=== PATIENT | female | born 1950 | race Caucasian/White ===

== ENCOUNTER 2024-01-26 08:57 | Emergency (ER) | payer OTHER ==
[2024-01-26 09:55] LABS: Absolute Eosinophils 0.2 K/uL (0-0.5); Absolute Lymphocytes (CBC) 1.6 K/uL (0.7-4.9); Absolute Monocytes 0.6 K/uL (0.1-1.3); Absolute Neutrophil 3.5 K/uL (1.8-8.0); Basophils % 0.8 % (0-1.3); Eosinophils % 2.8 % (0-4.4); Hematocrit 42.9 % (36.0-45.0); Hemoglobin 14.2 g/dL (12.0-15.0); Lymphocytes % 26.2 % (15.3-44.8); MCH 30.6 pg (27.0-35.0); MCHC 33.2 g/dL (32.0-36.0); MCV 92.1 fL (80-100); MPV 8.9 fL (7.6-11.3); Monocytes % 10.6 % (3.3-12.3); Neutrophils % 59.6 % (41.7-73.7); Platelets 262 thou/uL (152-406); RBC Red Blood Cell Count 4.66 M/uL (3.86-4.86); Red Cell Distribution Width 12.9 % (12.1-15.2)
[2024-01-26] MEDS ORDERED: NA CHLORIDE 0.9% 500 ML ONE (11:16)
[2024-01-26 11:58] LABS: Albumin 3.9 g/dL (3.4-5.0); Albumin/Globulin Ratio 1.1 (1.1-1.8); Anion Gap 9.1 mEq/L (5.0-15.0); Bilirubin Total 0.6 mg/dL (0.2-1.0); Globulin 3.5 g/dL (2.3-3.5); Potassium 4.1 mEq/L (3.5-5.1); Protein, Total 7.4 g/dL (6.4-8.2)
--- NOTE | 2024-01-26 12:52 | RAD REPORT ---
EXAM DESCRIPTION: CT - Abdomen Pelvis W Contrast - 01/26/2024 12:27 pm CLINICAL HISTORY: Abd pain;Constipation COMPARISON: No comparisons TECHNIQUE: Thin cut axial CT imaging of the abdomen and pelvis was performed following intravenous a dministration of 100 mL Isovue 300. Multiplanar reformats were generated and reviewed. All CT scans are performed using dose optimization technique as appropriate and may include automated exposure control or mA/KV adjustment according to patient size. FINDINGS: No suspicious findings in the lung bases. The liver, spleen, adrenal glands, and pancreas show no suspicious findings. Gallbladder and biliary tree are also without suspicious finding. Symmetric renal function is seen with no hydronephrosis or suspicious renal mass. No dilated bowel loops or bowel wall thickening. Mild distal colonic diverticulosis. No free air, sana e fluid or inflammatory stranding. No hernia, mass or bulky lymphadenopathy. The urinary bladder is w ithout significant finding. No suspicious bony findings. Sequelae of left lower extremity amputation, with osteopenia along the l eft hemipelvis. IMPRESSION: No acute intra-abdominal process. Incidental findings as above.
[2024-01-26] MEDS ORDERED: MAGNESIUM CITRATE 300 ML BOT ONE (13:39)
[2024-01-26 14:28] VITALS: BP 118/88; TEMP 97.9; O2SAT 98
--- NOTE | 2024-01-26 18:03 | ER ---
Nurse's Notes [facility] Name: Luci Vaca Age: 73 yrs Sex: Female : 1950 Arrival Date: 01/26/2024 Time: 08:57 Bed 5 Private MD: Diagnosis: Constipation, unspecified Presentation: 01/25 09:14 Chief complaint: Patient states: has not had a BM X 2 weeks. Coronavirus screen: At iw this time, the client does not indicate any symptoms associated with coronavirus-19. Ebola Screen: Patient negative for fever greater than or equal to 101.5 degrees Fahrenheit, and additional compatible Ebola Virus Disease symptoms Patient denies exposure to infectious person. Patient denies travel to an Ebola-affected area in the 21 days before illness onset. No symptoms or risks identified at this time. Initial Sepsis Screen: Does the patient meet any 2 criteria? No. Patient's initial sepsis screen is negative. Does the patient have a suspected source of infection?. Risk Assessment: Do you want to hurt yourself or someone else? Patient reports no desire to harm self or others. Onset of symptoms was January 12, 2024. 09:14 Method Of Arrival: Wheelchair iw 09:14 Acuity: VIKTORIYA 3 iw Historical: - Allergies: 09:15 Codeine; not true allergy; iw - PMHx: 09:15 DVT; Hypertension; Myocardial infarction; iw - Immunization history:: Adult Immunizations up to date. - Infectious Disease History:: Denies. - Family history:: not pertinent. - Social history:: Smoking status: Patient denies any tobacco usage or history of. - Hospitalizations: : No recent hospitalization is reported. Screenin:36 [facility] ED Fall Risk Assessment (Adult) History of falling in the last 3 months, hb including since admission No falls in past 3 months (0 pts) Confusion or Disorientation No (0 pts) Intoxicated or Sedated No (0 pts) Impaired Gait Yes (1 pt) Mobility Assist Device Used Yes (1 pt) Altered Elimination No (0 pt) Score/Fall Risk Level 3 or more points = High Risk Oriented to surroundings, Maintained a safe environment, Educated pt \T\ family on fall prevention, incl call for assistance when getting out of bed, Assessed \T\ reinforced patient's understanding of fall precautions, Hourly rounding (assess needs \T\ fall precautionary measures) done. Abuse screen: Denies threats or abuse. Denies injuries from another. Nutritional screening: No deficits noted. Tuberculosis screening: No symptoms or risk factors identified. Assessment: 10:40 General: Appears in no apparent distress. Behavior is calm, cooperative. Pain: Pain hb currently is 2 out of 10 on a pain scale. Neuro: Level of Consciousness is awake, alert, obeys commands, Oriented to person, place, time, situation. Cardiovascular: Patient's skin is warm and dry. Respiratory: Respiratory effort is even, unlabored, Respiratory pattern is regular, symmetrical. GI: Reports bloating, constipation, Pain is 2 out of 10 on a pain scale. : No signs and/or symptoms were reported regarding the genitourinary system. EENT: No signs and/or symptoms were reported regarding the EENT system. Derm: Skin is pink, warm \T\ dry. Musculoskeletal: No signs and/or symptoms reported regarding the musculoskeletal system. 11:36 Reassessment: Patient appears in no apparent distress at this time. Patient and/or hb family updated on plan of care and expected duration. Pain level reassessed. Patient is alert, oriented x 3, equal unlabored respirations, skin warm/dry/pink. Vital Signs: 09:14 BP 124 / 91; Pulse 71; Resp 16; Temp 97.9; Pulse Ox 95% on R/A; Weight 53.98 kg; Height iw 5 ft. 3 in. ; 13:56 BP 118 / 88; Pulse 68; Resp 18; Temp 97.9; Pulse Ox 98% on R/A; ph 09:14 Body Mass Index 21.08 (53.98 kg, 160.02 cm) iw ED Course: 09:00 Patient arrived in ED. mr 09:15 Triage completed. iw 09:16 Arm band placed on. iw 09:20 Jeancarlos Burnette MD is Attending Physician. rn 09:46 CBC with Diff Sent. bc6 09:46 CMP Sent. bc6 09:46 Lipase Sent. bc6 09:46 Initial lab(s) drawn, by me, sent to lab. Inserted saline lock: 20 gauge in right bc6 forearm, using aseptic technique. Blood collected. 11:36 Patient has correct armband on for positive identification. Bed in low position. Call hb light in reach. Provided Education on: tests, result times, use of call light. 12:28 CT Abd/Pelvis - IV Contrast Only In Process Unspecified. EDMS 13:59 No provider procedures requiring assistance completed. IV discontinued, intact, ph bleeding controlled, No redness/swelling at site. Pressure dressing applied. Administered Medications: 11:34 Drug: NS 0.9% IV 500 ml IV at bolus once Route: IV; Rate: bolus; Site: right forearm; hb 13:59 Follow up: Response: No adverse reaction; IV Status: Completed infusion ph 13:59 Drug: Magnesium Citrate PO Liquid 300 ml PO once Route: PO; ph Medication: 11:36 VIS not applicable for this client. hb Outcome: 13:28 Discharge ordered by MD. rn 13:59 Discharged to home via wheelchair, with significant other, ph 13:59 Condition: good 13:59 Discharge instructions given to patient, Instructed on discharge instructions, follow up and referral plans. Demonstrated understanding of instructions, follow-up care, 13:59 Patient left the ED. ph Signatures: Dispatcher [employer] EDRI Ivett Gonzales, Reg Reg mr Mayte Valerio, REMY ALBERTO iw Jeancarlos Burnette MD MD rn Hall, Patricia, RN RN Silvia Breen, REMY ALBERTO Kathy Roberto bc6 Corrections: (The following items were deleted from the chart) 09:16 09:15 Allergies: Codeine; roxanna mcknight
--- NOTE | 2024-01-26 18:03 | EDPHYS ---
Physician Documentation [facility] Name: Luci Vaca Age: 73 yrs Sex: Female : 1950 Arrival Date: 01/26/2024 Time: 08:57 Bed 5 Private MD: ED Physician Jeancarlos Burnette HPI: 01/25 12:03 This 73 yrs old Female presents to ER via Wheelchair with complaints of Constipation. rn 12:03 The patient presents with Constipation. Onset: The symptoms/episode began/occurred 2 rn week(s) ago. Associated signs and symptoms: Pertinent negatives: nausea and vomiting, blood in stools, fever. Modifying factors: The symptoms are alleviated by nothing, the symptoms are aggravated by nothing. The patient has not experienced similar symptoms in the past. Patient reports no bowel movement for 2 weeks. Is passing gas. No vomiting. Denies abdominal pain. Has not happened to her before.. Historical: - Allergies: :15 Codeine; not true allergy; iw - PMHx: :15 DVT; Hypertension; Myocardial infarction; iw - Immunization history:: Adult Immunizations up to date. - Infectious Disease History:: Denies. - Family history:: not pertinent. - Social history:: Smoking status: Patient denies any tobacco usage or history of. - Hospitalizations: : No recent hospitalization is reported. ROS: 12:03 Constitutional: Negative for fever, chills, and weight loss, Cardiovascular: Negative rn for chest pain, palpitations, and edema, Respiratory: Negative for shortness of breath, cough, wheezing, and pleuritic chest pain, Abdomen/GI: Positive for constipation MS/Extremity: Negative for injury and deformity, Skin: Negative for injury, rash, and discoloration, Neuro: Negative for headache, weakness, numbness, tingling, and seizure, Exam: 12:03 Constitutional: This is a well developed, well nourished patient who is awake, alert, rn and in no acute distress. Cardiovascular: Regular rate and rhythm. No pulse deficits. Respiratory: No increased work of breathing, no retractions or nasal flaring. Abdomen/GI: Soft, nontender Vital Signs: 09:14 BP 124 / 91; Pulse 71; Resp 16; Temp 97.9; Pulse Ox 95% on R/A; Weight 53.98 kg; Height iw 5 ft. 3 in. ; 13:56 BP 118 / 88; Pulse 68; Resp 18; Temp 97.9; Pulse Ox 98% on R/A; ph 09:14 Body Mass Index 21.08 (53.98 kg, 160.02 cm) iw MDM: 09:20 Patient medically screened. rn 13:27 Differential diagnosis: appendicitis, bowel obstruction, non-specific abd pain, rn pancreatitis, Internal hernia, constipation, dehydration, diverticulitis. Data reviewed: vital signs, nurses notes, lab test result(s), radiologic studies, CT scan, and as a result, I will discharge patient. Counseling: I had a detailed discussion with the patient and/or guardian regarding the historical points, exam findings, and any diagnostic results supporting the discharge/admit diagnosis, lab results, radiology results, the need for outpatient follow up, to return to the emergency department if symptoms worsen or persist or if there are any questions or concerns that arise at home. Special discussion: Based on the patient's Hx, exam, and Dx evaluation, there is no indication for emergent surgery or inpatient Tx. It is understood by the patient/guardian that if the Sx's persist or worsen they need to return immediately for re-evaluation. I discussed with the patient/guardian in detail that at this point there is no indication for admission to the hospital. It is understood, however, that if the symptoms persist or worsen the patient needs to return immediately for re-evaluation. ED course: No acute findings on imaging or blood work. I have personally reviewed all of the results, including but not limited to blood tests and imaging deemed necessary to safely discharge this patient at this time. All results given to and printed out for patient. I personally went over all the results with the patient and answered all questions. Patient will follow-up with PCP and or specialist as discussed. Return precautions given and understood.. 01/25 09:21 Order name: CBC with Diff; Complete Time: 12:03 rn 01/25 09:21 Order name: CMP; Complete Time: 12:03 rn 01/25 09:21 Order name: Lipase; Complete Time: 12:03 rn 01/25 09:21 Order name: CT Abd/Pelvis - IV Contrast Only; Complete Time: 13:09 rn 01/25 09:21 Order name: IV Saline Lock; Complete Time: 09:46 rn 01/25 09:21 Order name: Labs collected and sent; Complete Time: 09:46 rn 01/25 10:02 Order name: Labs - recollect needed: recollect green top; Complete Time: 11:34 bd Administered Medications: 11:34 Drug: NS 0.9% IV 500 ml IV at bolus once Route: IV; Rate: bolus; Site: right forearm; hb 13:59 Follow up: Response: No adverse reaction; IV Status: Completed infusion ph 13:59 Drug: Magnesium Citrate PO Liquid 300 ml PO once Route: PO; ph Disposition Summary: 01/26/24 13:28 Discharge Ordered Notes: Location: Home rn Problem: new rn Symptoms: have improved rn Condition: Stable rn Diagnosis - Constipation, unspecified rn Followup: rn - With: Private Physician - When: As needed - Reason: Recheck today's complaints, Re-evaluation by your physician Discharge Instructions: - Discharge Summary Sheet rn - Constipation, Adult rn Forms: - Medication Reconciliation Form rn - Antibiotic hand turner - Prescription Opioid Use rn - Patient Portal Instructions rn - Leadership Thank You Letter rn Signatures: Dispatcher [employer] EDMS Judie Archibald Irene, RN RN iw Jeancarlos Burnette MD MD rn Hall, Patricia, RN RN Silvia Breen RN RN Corrections: (The following items were deleted from the chart) 09:16 09:15 Allergies: Codeine; iw 09:21 09:21 CBC+H.LAB.BRZ ordered. EDMS EDMS 09:21 09:21 COMPREHENSIVE METABOLIC PANEL+C.LAB.BRZ ordered. EDMS EDMS 09:21 09:21 LIPASE+C.LAB.BRZ ordered. EDMS EDMS 09:21 09:21 Abdomen Pelvis W Con+CT.RAD.BRZ ordered. EDMS EDMS
== END 2024-01-26 13:59 | disposition home or self-care (01) ==
LOC: ER 08:57
DX: K59.00 Constipation, unspecified (principal)
CPT/HCPCS: 85025; 36415; 83690; 80053; 74177; Q9967; J7040; 96360; 96361; 99284

== ENCOUNTER 2024-11-02 09:50 | Inpatient (IN) | payer OTHER ==
[2024-11-02] MEDS ORDERED: METOPROLOL TAR 25 MG TAB ONE (10:16)
[2024-11-02] MEDS ORDERED: NA CHLORIDE 0.9% 1,000 ML ONE (10:17)
[2024-11-02] MEDS ORDERED: ASPIRIN 81 MG CHEWABLE TABLET ONE (10:17)
[2024-11-02] MEDS ORDERED: FAMOTIDINE 20 MG/2 ML VIAL IV ONE (10:17)
[2024-11-02] MEDS ORDERED: MORPHINE 4 MG/ML SYR ONE (10:17)
[2024-11-02] MEDS ORDERED: ONDANSETRON 4 MG/2 ML VIAL ONE ×2 (10:18→13:21)
[2024-11-02 10:28] LABS: Absolute Basophils 0.2 K/uL (0-0.5); Absolute Eosinophils 0.1 K/uL (0-0.5); Absolute Lymphocytes (CBC) 2.3 K/uL (0.7-4.9); Absolute Monocytes 0.7 K/uL (0.1-1.3); Absolute Neutrophil 5.6 K/uL (1.8-8.0); Basophils % 1.9 % (0-1.3); Eosinophils % 1.5 % (0-4.4); Hematocrit 40.2 % (36.0-45.0); Hemoglobin 13.5 g/dL (12.0-15.0); Lymphocytes % 25.5 % (15.3-44.8); MCH 30.9 pg (27.0-35.0); MCHC 33.6 g/dL (32.0-36.0); MCV 92.1 fL (80-100); MPV 9.6 fL (7.6-11.3); Monocytes % 7.9 % (3.3-12.3); Neutrophils % 63.2 % (41.7-73.7); Nucleated Red Blood Cells % 0.1 % (0-0); Platelets 273 thou/uL (152-406); RBC Red Blood Cell Count 4.36 M/uL (3.86-4.86); Red Cell Distribution Width 13.1 % (12.1-15.2)
[2024-11-02 10:32] LABS: PT Prothrombin Time 12.9 SECONDS (10-13.0); Protime INR 1.14
[2024-11-02] MEDS ORDERED: HYDROMORPHONE HCL 1 MG/ML INJ ONE (11:04)
[2024-11-02] MEDS ORDERED: HEPARIN 5000 UNIT/ML 1 ML VIAL ONE ×2 (11:05→12:07)
[2024-11-02] MEDS ORDERED: CLOPIDOGREL 75 MG TABLET ONE (11:05)
[2024-11-02] MEDS ORDERED: HEPARIN/D5W 25,000 UNIT/500 ML BAG IV ONE (11:05)
[2024-11-02 11:18] LABS: ALT/SGPT 44 U/L (13-56); AST/SGOT 25 U/L (15-37); Albumin 3.8 g/dL (3.4-5.0); Alkaline Phosphatase 121 U/L (45-117); Anion Gap 11.8 mEq/L (5.0-15.0); BUN Blood Urea Nitrogen 16 mg/dL (7-18); Bicarbonate 22 mEq/L (21-32); Bilirubin Total 0.3 mg/dL (0.2-1.0); Globulin 3.7 g/dL (2.3-3.5); Glomerular Filtration Rate 81 ml/min (=/>90); Glucose Level 147 mg/dL (74-106); Lipase 49 U/L (13-75); Magnesium 1.1 mg/dL (1.6-2.4); NT PRO-BNP 109 pg/mL (<450); Potassium 3.8 mEq/L (3.5-5.1); Protein, Total 7.5 g/dL (6.4-8.2); Sodium Level 140 mEq/L (136-145); Troponin High Sensitivity 22.4 pg/mL (<58.9)
[2024-11-02 11:19] LABS: Bilirubin Direct < 0.2 mg/dL (0-0.2); Bilirubin Indirect, Calculated 0.1 mg/dL (0.2-0.8)
[2024-11-02] MEDS ORDERED: TICAGRELOR 90 MG TABLET PO ONE (11:32)
--- NOTE | 2024-11-02 11:38 | EDPHYS ---
Physician Documentation [facility] Name: Luci Vaca Age: 74 yrs Sex: Female : 1950 Arrival Date: 11/02/2024 Time: 09:50 Bed 3 Private MD: ED Physician Jefe Chaidez HPI: 11/02 10:56 This 74 yrs old Female presents to ER via Wheelchair with complaints of Chest anderson Pain. 10:56 The patient or guardian reports chest pain that is located primarily in the substernal anderson area, epigastric area. Onset: this morning. The pain does not radiate. Associated signs and symptoms: Pertinent positives: abdominal pain, diaphoresis, shortness of breath. The chest pain is described as a heaviness, a pressure. Modifying factors: The symptoms are alleviated by nothing. the symptoms are aggravated by nothing. Severity of pain: At its worst the pain was moderate severe in the emergency department the pain is unchanged. The patient has not experienced similar symptoms in the past. Historical: - Allergies: :56 Codeine; not true allergy; ll1 - Home Meds: 11:40 atorvastatin 40 mg oral tablet daily [Active]; amlodipine 5 mg tablet [Active]; ph valsartan 160 mg oral tablet [Active]; Omeprazole Oral [Active]; carvedilol oral [Active]; - PMHx: 09:56 DVT; Hypertension; Myocardial infarction; ll1 - PSHx: 09:56 6 heart stents (Myocardial infarction); ll1 - Immunization history:: Adult Immunizations up to date. - Infectious Disease History:: Denies. - Family history:: not pertinent. - Social history:: Smoking status: Patient denies any tobacco usage or history of. ROS: 10:58 Constitutional: Negative for fever, chills, and weight loss, Eyes: Negative for injury, anderson pain, redness, and discharge, ENT: Negative for injury, pain, and discharge, Neck: Negative for injury, pain, and swelling, Respiratory: Negative for shortness of breath, cough, wheezing, and pleuritic chest pain, Abdomen/GI: Negative for abdominal pain, nausea, vomiting, diarrhea, and constipation, Back: Negative for injury and pain, : Negative for injury, bleeding, discharge, and swelling, MS/Extremity: Negative for injury and deformity, Neuro: Negative for headache, weakness, numbness, tingling, and seizure, Psych: Negative for depression, anxiety, suicide ideation, homicidal ideation, and hallucinations, Allergy/Immunology: Negative for hives, rash, and allergies, Endocrine: Negative for neck swelling, polydipsia, polyuria, polyphagia, and marked weight changes, Hematologic/Lymphatic: Negative for swollen nodes, abnormal bleeding, and unusual bruising, 10:58 Cardiovascular: Positive for chest pain, of the chest, Exam: 10:58 Constitutional: This is a well developed, well nourished patient who is awake, alert, anderson and in no acute distress. Head/Face: Normocephalic, atraumatic. Eyes: Pupils equal round and reactive to light, extra-ocular motions intact. Lids and lashes normal. Conjunctiva and sclera are non-icteric and not injected. Cornea within normal limits. Periorbital areas with no swelling, redness, or edema. ENT: Nares patent. No nasal discharge, no septal abnormalities noted. Tympanic membranes are normal and external auditory canals are clear. Oropharynx with no redness, swelling, or masses, exudates, or evidence of obstruction, uvula midline. Mucous membranes moist. Neck: Trachea midline, no thyromegaly or masses palpated, and no cervical lymphadenopathy. Supple, full range of motion without nuchal rigidity, or vertebral point tenderness. No Meningismus. Chest/axilla: Normal chest wall appearance and motion. Nontender with no deformity. No lesions are appreciated. Cardiovascular: Regular rate and rhythm with a normal S1 and S2. No gallops, murmurs, or rubs. Normal PMI, no JVD. No pulse deficits. Respiratory: Lungs have equal breath sounds bilaterally, clear to auscultation and percussion. No rales, rhonchi or wheezes noted. No increased work of breathing, no retractions or nasal flaring. Back: No spinal tenderness. No costovertebral tenderness. Full range of motion. Female : Normal external genitalia. MS/ Extremity: Pulses equal, no cyanosis. Neurovascular intact. Full, normal range of motion., bilateral aka Neuro: Awake and alert, GCS 15, oriented to person, place, time, and situation. Cranial nerves II-XII grossly intact. Motor strength 5/5 in all extremities. Sensory grossly intact. Cerebellar exam normal. Normal gait. Psych: Awake, alert, with orientation to person, place and time. Behavior, mood, and affect are within normal limits. 10:58 ECG was reviewed by the Attending Physician. 11:01 ECG was reviewed by the Attending Physician. [facility] Vital Signs: 10:05 BP 168 / 73; Pulse 74; Resp 20; Temp 96.8; Pulse Ox 98% on R/A; ph 10:07 Weight 49.9 kg; Height 5 ft. 3 in. ; ph 11:10 BP 152 / 79; Pulse 81; Resp 18; Pulse Ox 100% on R/A; ph 11:37 BP 161 / 91; Pulse 84; Resp 18; Pulse Ox 100% on R/A; ph 10:07 Body Mass Index 19.49 (49.90 kg, 160.02 cm) ph MDM: 09:53 Medical Screening Exam initiated [facility] 11:02 HEART Score: History: Highly Suspicious (2), ECG: Significant ST-deviation (2), Age: > anderson or = 65 years (2), Risk Factors: > or = 3 Risk factors for atherosclerotic disease (2), [Hypercholesterolemia] [Hypertension] [+ Family HX]. The patient was given aspirin in the Emergency Department. SUMIT Risk Score: 1 - patient's age is greater or equal to 65 years, 1 - Three or more CAD risk factors, 1- Known CAD, 1 - ASA use in past 7 days, 1 - Recent [<24hrs] Severe Angina, 1 - Elevated Cardiac Markers, 1 - ST deviation >0.5mm, TOTAL SCORE = 7. Data reviewed: vital signs, nurses notes, lab test result(s), EKG, radiologic studies, plain films. Consideration of Admission/Observation Patient was admitted/placed on observation. Escalation of care including admission/observation considered. I considered the following discharge prescriptions or medication management in the emergency department Medications were administered in the Emergency Department. See MAR. Independent interpretation of the following test(s) in the Emergency Department EKG: See my EKG interpretation above. Test considered but Not performed: Ultrasound NO 2 D ECHO. Historians other than the Patient: Spouse/Significant Other: WELL INFORMED. Care significantly affected by the following chronic conditions: Hypertension, CAD , STENTS. Counseling: I had a detailed discussion with the patient and/or guardian regarding the historical points, exam findings, and any diagnostic results supporting the discharge/admit diagnosis, lab results, radiology results, the need for further work-up and treatment in the hospital. 11:04 ED course: DW DR CARLSON , STORY , SENT EKG'S. anderson 11/02 09:54 Order name: Basic Metabolic Panel; Complete Time: 11:23 anderson 11/02 09:54 Order name: CBC with Diff; Complete Time: 10:39 11/02 09:54 Order name: LFT's; Complete Time: 11:11/02 09:54 Order name: Magnesium; Complete Time: 11:23 11/02 09:54 Order name: NT PRO-BNP; Complete Time: 11: [facility] 11/02 09:54 Order name: PT-INR; Complete Time: 10:39 [facility] 11/02 09:54 Order name: Troponin HS; Complete Time: 11:23 [facility] 11/02 09:54 Order name: Lipase; Complete Time: 11: [facility] 11/02 10:18 Order name: PTT, Activated Partial Thromb; Complete Time: 10:39 EDKS 11/02 12:05 Order name: Basic Metabolic Panel EDMS 11/02 12:05 Order name: Basic Metabolic Panel EDMS 11/02 12:05 Order name: Basic Metabolic Panel EDMS 11/02 12:05 Order name: Basic Metabolic Panel EDMS 11/02 12:05 Order name: Basic Metabolic Panel EDMS 11/02 12:05 Order name: Basic Metabolic Panel EDMS 11/02 12:05 Order name: T4 Free EDMS 11/02 12:05 Order name: Thyroid Stimulating Hormone EDMS 11/02 12:05 Order name: CBC with Automated Diff EDMS 11/02 12:05 Order name: CBC with Automated Diff EDMS 11/02 12:05 Order name: CBC with Automated Diff EDMS 11/02 12:05 Order name: CBC with Automated Diff EDMS 11/02 12:05 Order name: CBC with Automated Diff EDMS 11/02 12:06 Order name: CBC with Automated Diff EDMS 11/02 12:06 Order name: Lipid Profile EDMS 11/02 12:06 Order name: Lipid Profile EDMS 11/02 12:06 Order name: Magnesium EDMS 11/02 12:06 Order name: Magnesium EDMS 11/02 12:06 Order name: Magnesium EDMS 11/02 12:06 Order name: Magnesium EDMS 11/02 12:06 Order name: Magnesium EDMS 11/02 12:06 Order name: Magnesium EDMS 11/02 12:06 Order name: Phosphorus EDMS 11/02 12:06 Order name: Phosphorus EDMS 11/02 12:06 Order name: Phosphorus EDMS 11/02 12:06 Order name: Phosphorus EDMS 11/02 12:06 Order name: Phosphorus EDMS 11/02 12:06 Order name: Phosphorus EDMS 11/02 09:54 Order name: XRAY Chest (1 view) [facility] 11/02 11:53 Order name: CL LEFT HEART WITHOUT LV EDMS 11/02 12:05 Order name: Echo with Doppler EDKS 11/02 10:43 Order name: EKG; Complete Time: 10:44 [facility] 11/02 09:54 Order name: Cardiac monitoring; Complete Time: 10: [facility] 11/02 09:54 Order name: EKG - Nurse/Tech; Complete Time: 10: [facility] 11/02 09:54 Order name: IV Saline Lock; Complete Time: 10: [facility] 11/02 09:54 Order name: Labs collected and sent; Complete Time: 10: [facility] 11/02 09:54 Order name: O2 Per Protocol; Complete Time: 10: [facility] 11/02 09:54 Order name: O2 Sat Monitoring; Complete Time: 10: [facility] 11/02 10:43 Order name: EKG - Nurse/Tech; Complete Time: 11:07 [facility] EC:58 Rate is 65 beats/min. Rhythm is regular. QRS Ida is Normal. DC interval is normal. QRS anderson interval is normal. QT interval is normal. No Q waves. T waves are Normal. ST Segment is depressed in leads V1, V2, V3, V4. Interpreted by me. Reviewed by me. 11:01 Rate is 74 beats/min. Rhythm is regular. QRS Ida is Normal. DC interval is normal. QRS anderson interval is normal. QT interval is normal. No Q waves. T waves are Normal. ST Segment is depressed in leads V1, V2, V3, V4. Administered Medications: 10:25 Drug: Aspirin PO Chewable Tablet 324 mg PO once; 81 mg tablets x 4 Route: PO; ph 12:08 Follow up: Response: No adverse reaction ph 10:25 Drug: NS 0.9% IV 1000 ml IV at 1 bolus Per protocol; to be given as a bolus over 60 ph minutes Route: IV; Rate: 1 bolus; Site: right antecubital; 12:08 Follow up: Response: No adverse reaction; IV Status: Completed infusion; IV Intake: ph 1000ml 10:25 Drug: morphine IVP or IV 4 mg IVP once over 4 mins Route: IVP; Infused Over: 4 mins; ph Site: right antecubital; 12:08 Follow up: Response: No adverse reaction ph 10:25 Drug: Famotidine IVP 20 mg IVP once; dilute with 10 mL 0.9% NaCl; give over 2 minutes ph Route: IVP; Site: right antecubital; 12:08 Follow up: Response: No adverse reaction ph 10:25 Drug: Metoprolol PO 25 mg PO once Route: PO; ph 12:08 Follow up: Response: No adverse reaction ph 11:08 Drug: Ondansetron IVP 4 mg IVP once; over 2 minutes Route: IVP; Site: right antecubital;ph 12:07 Follow up: Response: No adverse reaction ph 11:15 Drug: HYDROmorphone IVP 1 mg IVP once Route: IVP; Site: right antecubital; ph 12:07 Follow up: Response: No adverse reaction; Pain is decreased ph 11:34 Not Given (Duplicate Order): [id number] mg PO once anderson 11:36 Drug: Heparin (TX-Bolus No thrombolytic) - HEParin IVP 60 units/kg IVP once; Max 5000 db units {Co-Signature: ph (Jossie Rg RN).} Route: IVP; Site: right antecubital; 12:08 Follow up: Response: No adverse reaction ph 11:37 Drug: Brilinta - Ticagrelor PO 180 mg PO once; loading dose Route: PO; ph 12:07 Follow up: Response: No adverse reaction ph 11:39 Not Given (Physician Discretion): Heparin (TX Drip) - ([id number] units, [id number] ml) ph 12 units/kg/hr IV at calculated rate Per protocol; Max initial rate 1000 units/hr Disposition Summary: 11/02/24 11:37 Hospitalization Ordered Notes: Hospitalization Status: Inpatient Admission anderson Provider: Tone Vázquez cha Condition: Serious anderson Problem: new anderson Symptoms: are unchanged anderson Bed/Room Type: Standard anderson Location: Intensive Care Unit(11/02/24 11:40) anderson Room Assignment: (11/02/24 11:40) anderson Diagnosis - Unstable angina anderson - Chest pain, unspecified - ACUTE CORONARY SYNDROME anderson - Abnormal electrocardiogram [ECG] [EKG] anderson Forms: - Medication Reconciliation Form anderson - SBAR form anderson - Leadership Thank You Letter anderson Signatures: Dispatcher [employer] EDJefe Moya MD MD cha Attema, Lee, MASONRY INSPECTOR-C MASONRY INSPECTOR-Cla1 Jossie Rg, REMY RN ph Edilma Ellington RN RN 1 Belgica Martinez RN RN db Jossie Rg RN ph Corrections: (The following items were deleted from the chart) 09:55 09:55 BASIC METABOLIC PANEL+C.LAB.BRZ ordered. EDMS EDMS 09:55 09:55 CBC+H.LAB.BRZ ordered. EDMS EDMS 09:55 09:55 HEPATIC FUNCTION+C.LAB.BRZ ordered. EDMS EDMS 09:55 09:55 MAGNESIUM+C.LAB.BRZ ordered. EDMS EDMS 09:55 09:55 PROBNP+C.LAB.BRZ ordered. EDMS EDMS 09:55 09:55 PROTIME (+INR)+COAG.LAB.BRZ ordered. EDMS EDMS 09:55 09:55 Troponin High Sensitivity+C.LAB.BRZ ordered. EDMS EDMS 09:55 09:55 LIPASE+C.LAB.BRZ ordered. EDMS EDMS 09:55 09:55 Chest Single View+RAD.RAD.BRZ ordered. EDMS EDMS 10:19 10:03 PTT, ACTIVATED+COAG.LAB.BRZ ordered. EDMS EDMS 11:21 10:44 Abdomen Limited+US.RAD.BRZ ordered. EDMS EDMS 11:34 10:44 Angio Aorta For Dissection+CT.RAD.BRZ ordered. EDMS EDMS 11:40 11:37 Telemetry/MedSurg (Inpatient) anderson anderson 11:40 11:37 anderson anderson
--- NOTE | 2024-11-02 11:38 | ER ---
Nurse's Notes [facility] Name: Luci Vaca Age: 74 yrs Sex: Female : 1950 Arrival Date: 11/02/2024 Time: 09:50 Bed 3 Private MD: Diagnosis: Unstable angina;Chest pain, unspecified-ACUTE CORONARY SYNDROME;Abnormal electrocardiogram [ECG] [EKG] Presentation: 11/02 09:56 Chief complaint: Patient states: CP for 2 days. Coronavirus screen: Client denies ll1 travel out of the [place] in the last 14 days. At this time, the client does not indicate any symptoms associated with coronavirus-19. Ebola Screen: Patient denies travel to an Ebola-affected area in the 21 days before illness onset. Initial Sepsis Screen: Does the patient meet any 2 criteria? No. Patient's initial sepsis screen is negative. Does the patient have a suspected source of infection? No. Patient's initial sepsis screen is negative. Risk Assessment: Do you want to hurt yourself or someone else? Patient reports no desire to harm self or others. Onset of symptoms was November 01, 2024. 09:56 Method Of Arrival: Wheelchair ll1 09:56 Acuity: VIKTORIYA 2 ll1 Historical: - Allergies: :56 Codeine; not true allergy; ll1 - Home Meds: 11:40 atorvastatin 40 mg oral tablet daily [Active]; amlodipine 5 mg tablet [Active]; ph valsartan 160 mg oral tablet [Active]; Omeprazole Oral [Active]; carvedilol oral [Active]; - PMHx: 09:56 DVT; Hypertension; Myocardial infarction; ll1 - PSHx: 09:56 6 heart stents (Myocardial infarction); ll1 - Immunization history:: Adult Immunizations up to date. - Infectious Disease History:: Denies. - Family history:: not pertinent. - Social history:: Smoking status: Patient denies any tobacco usage or history of. Screenin:04 [facility] ED Fall Risk Assessment (Adult) History of falling in the last 3 months, ph including since admission No falls in past 3 months (0 pts) Confusion or Disorientation No (0 pts) Intoxicated or Sedated No (0 pts) Impaired Gait No (0 pts) Mobility Assist Device Used No (0 pt) Altered Elimination No (0 pt) Score/Fall Risk Level 0 - 2 = Low Risk Oriented to surroundings, Maintained a safe environment, Provided non-skid footwear, Hourly rounding (assess needs \T\ fall precautionary measures) done. Abuse screen: Denies threats or abuse. Denies injuries from another. Nutritional screening: No deficits noted. Tuberculosis screening: No symptoms or risk factors identified. Assessment: 10:05 General: Appears in no apparent distress. uncomfortable, Behavior is anxious, restless. ph Pain: Complains of pain in chest Pain does not radiate. Pain began 2-3 days ago. Neuro: Level of Consciousness is awake, alert, obeys commands, Oriented to person, place, situation. Cardiovascular: Reports chest pain. Respiratory: Airway is patent Respiratory effort is labored, Respiratory pattern is symmetrical. GI: No signs and/or symptoms were reported involving the gastrointestinal system. Derm: Skin is clammy, Skin is normal. Musculoskeletal: Amputation of Circulation, motion, and sensation intact. 12:07 Reassessment: Patient appears in no apparent distress at this time. Patient and/or ph family updated on plan of care and expected duration. Pain level reassessed. Patient is alert, oriented x 3, equal unlabored respirations, skin warm/dry/pink. laborer concrete paving team at bedside, pt transported to laborer concrete paving. Vital Signs: 10:05 BP 168 / 73; Pulse 74; Resp 20; Temp 96.8; Pulse Ox 98% on R/A; ph 10:07 Weight 49.9 kg; Height 5 ft. 3 in. ; ph 11:10 BP 152 / 79; Pulse 81; Resp 18; Pulse Ox 100% on R/A; ph 11:37 BP 161 / 91; Pulse 84; Resp 18; Pulse Ox 100% on R/A; ph 10:07 Body Mass Index 19.49 (49.90 kg, 160.02 cm) ED Course: 09:51 Patient arrived in ED. im 09:53 Jefe Chaidez MD is Attending Physician. [facility] 09:56 Triage completed. ll1 09:56 Arm band placed on Patient placed in an exam room, on a stretcher. ll1 10:03 Jossie Rg RN is Primary Nurse. ph 10:04 Patient has correct armband on for positive identification. Bed in low position. Call ph light in reach. Side rails up X 1. dial painter on. Pulse ox on. NIBP on. Door closed. Noise minimized. Warm blanket given. 10:08 Initial lab(s) drawn, by ED staff, sent to lab. EKG done, by ED staff, reviewed by jennifer Chaidez MD. Inserted saline lock: 22 gauge in right antecubital area, using aseptic technique. Blood collected. Flushed with 10 mL NS. Patient maintains SpO2 saturation greater than 95% on room air. 11:29 XRAY Chest (1 view) In Process Unspecified. EDMS 11:35 Tone Vázquez PA is Hospitalizing Provider. [facility] 11:41 No provider procedures requiring assistance completed. Patient admitted, IV remains in ph place. Administered Medications: 10:25 Drug: Aspirin PO Chewable Tablet 324 mg PO once; 81 mg tablets x 4 Route: PO; ph 12:08 Follow up: Response: No adverse reaction ph 10:25 Drug: NS 0.9% IV 1000 ml IV at 1 bolus Per protocol; to be given as a bolus over 60 ph minutes Route: IV; Rate: 1 bolus; Site: right antecubital; 12:08 Follow up: Response: No adverse reaction; IV Status: Completed infusion; IV Intake: ph 1000ml 10:25 Drug: morphine IVP or IV 4 mg IVP once over 4 mins Route: IVP; Infused Over: 4 mins; ph Site: right antecubital; 12:08 Follow up: Response: No adverse reaction ph 10:25 Drug: Famotidine IVP 20 mg IVP once; dilute with 10 mL 0.9% NaCl; give over 2 minutes ph Route: IVP; Site: right antecubital; 12:08 Follow up: Response: No adverse reaction ph 10:25 Drug: Metoprolol PO 25 mg PO once Route: PO; ph 12:08 Follow up: Response: No adverse reaction ph 11:08 Drug: Ondansetron IVP 4 mg IVP once; over 2 minutes Route: IVP; Site: right antecubital;ph 12:07 Follow up: Response: No adverse reaction ph 11:15 Drug: HYDROmorphone IVP 1 mg IVP once Route: IVP; Site: right antecubital; ph 12:07 Follow up: Response: No adverse reaction; Pain is decreased ph 11:34 Not Given (Duplicate Order): [id number] mg PO once anderson 11:36 Drug: Heparin (NH-Bolus No thrombolytic) - HEParin IVP 60 units/kg IVP once; Max 5000 db units {Co-Signature: ph (Jossie Rg RN).} Route: IVP; Site: right antecubital; 12:08 Follow up: Response: No adverse reaction ph 11:37 Drug: Brilinta - Ticagrelor PO 180 mg PO once; loading dose Route: PO; ph 12:07 Follow up: Response: No adverse reaction ph 11:39 Not Given (Physician Discretion): Heparin ([place] Drip) - ([id number] units, [id number] ml) ph 12 units/kg/hr IV at calculated rate Per protocol; Max initial rate 1000 units/hr Medication: 10:05 VIS not applicable for this client. ph Intake: 12:08 IV: 1000ml; Total: 1000ml. ph Outcome: 11:37 Decision to Hospitalize by Provider. and[place] 12:09 Admitted to Senior Bioinformatics Scientist accompanied by nurse, family with patient, via stretcher, on ph monitor, with chart, 12:09 Condition: stable 12:09 Instructed on the need for admit, 12:09 Patient left the ED. ph Signatures: Dispatcher [employer] EDMS Jefe Chaidez MD MD cha Hall, Patricia, RN RN ph Edilma Ellington RN RN ll1 Belgica Martinez RN RN db Lynnette Jaimes Patricia RN ph Corrections: (The following items were deleted from the chart) 11:39 11:39 HYDROmorphone IVP 1 mg IVP in right antecubital ph ph
--- NOTE | 2024-11-02 11:47 | RAD REPORT ---
EXAMINATION: ONE VIEW CHEST XR CLINICAL INDICATION: CHEST PAIN TECHNIQUE: Frontal chest projection is submitted. Examination is limited by patient positioning and t echnique. COMPARISON: No prior exam. FINDINGS: Mild interstitial pulmonary edema suspected. The heart is upper limit of normal in size. No displaced fractures identified. Aortic atherosclerosis. IMPRESSION: Mild CHF is possible.
[2024-11-02] MEDS ORDERED: ACETAMINOPHEN 325 MG TABLET PO PRN (11:58)
[2024-11-02] MEDS: NA CHLORIDE 0.9% 1,000 ML IV SCH (12:00)
[2024-11-02] MEDS ORDERED: HEPA 1000U/500MLS 2,000 UNIT/1,000 ML BAG IV ONE (12:06)
[2024-11-02] MEDS ORDERED: LIDOCAINE 1% 20 ML MDV ONE (12:07)
[2024-11-02] MEDS ORDERED: HEPARIN 10,000 UNIT/10 ML VIAL IV ONE (12:07)
[2024-11-02] MEDS ORDERED: ATROPINE SULF 1 MG/10 ML SYR IV ONE (12:07)
[2024-11-02] MEDS ORDERED: NITROGLYCERIN/D5W 50 MG/250 ML BTL IV ONE (12:08)
--- NOTE | 2024-11-02 12:14 | P.HP ---
Certification for Inpatient Patient admitted to: Observation With expected LOS: <2 Midnights Patient will require the following post-hospital care: None Practitioner: I am a practitioner with admitting privileges, knowledge of patient current condition, hospital course, and medical plan of care. Services: Services provided to patient in accordance with Admission requirements found in Title 42 Section 412.3 of the Code of Federal Regulations Patient History Date of Service: 11/02/24 Reason for admission: Acute coronary syndrome History of Present Illness: Luci Vaca is a 74-year-old female with a past medical history of CAD status post 6 stents in 2016, myocardial infarction, hypertension, blood clot to left leg requiring amputation in 1991, who presents to the ED with severe chest pain, diaphoresis, abdominal pain, shortness of breath that began at 9 AM this morning. On evaluation in the ED she was found to had EKG showing ST Segment is depressed in leads V1, V2, V3, V4 and negative troponin. Chest xray reports "Mild CHF is possible." Luci will be admitted to hospitalist service for further evaluation of Acute coronary syndrome. Allergies codeine Allergy (Unverified 01/30/16 03:45) Unknown - Past Medical/Surgical History -: Hypertension -: CAD -: [place] -: DVT to left leg 1991 -: Left leg amputation 1991 -: 6 stents placed in 2016 - Social History Smoking Status: Never smoker Alcohol use: Yes CD- Drugs: No Review of Systems Other: Per HPI Physical Examination - Physical Exam General: Alert, In no apparent distress, Oriented x3 HEENT: Atraumatic, Normocephalic Neck: Supple, 2+ carotid pulse no bruit Respiratory: Clear to auscultation bilaterally, Normal air movement Cardiovascular: Normal pulses, Regular rate/rhythm, Normal S1 S2 Capillary refill: <2 Seconds Gastrointestinal: Normal bowel sounds, Soft and benign Musculoskeletal: No clubbing Integumentary: No rashes Neurological: Normal speech, Normal tone - Studies Laboratory Data (last 24 hrs) 11/02/24 11/02/24 11/02/24 10:09 10:09 10:09 WBC 8.90 Hgb 13.5 Hct 40.2 Plt Count 273 PT 12.9 INR 1.14 APTT 27.0 L Sodium 140 Potassium 3.8 BUN 16 Creatinine 0.76 Glucose 147 H Magnesium 1.1 L Total Bilirubin 0.3 AST 25 ALT 44 Alkaline Phosphatase 121 H Lipase 49 11/02/24 10:03 WBC Hgb Hct Plt Count PT INR APTT Cancelled Sodium Potassium BUN Creatinine Glucose Magnesium Total Bilirubin AST ALT Alkaline Phosphatase Lipase Assessment and Plan - Plan Assessment and plan Acute coronary syndrome CAD status post six stents (2016) History [place] - EKG: ST Segment is depressed in leads V1, V2, V3, V4 - Heart score 7 - Trend troponin - Ordered transthoracic echocardiogram - chest x-ray "mild CHF possible" - Consult Cardiology -emergent 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 for Derrick Boat Lever Operator evaluation - S/P aspirin 324 mg PO x 1 in ED - Start daily baby aspirin and statin - Symptom control with PRN acetaminophen, nitroglycerin, morphine - continuous telemetry -TSH/FreeT4, A1C, lipid panel pending DVT Left leg amputation Hypertension -Continue home medication DVT PPx heparin drip Full code LOS 24 hour OBS - Advance Directives Does patient have a Living Will: No Does patient have a Durable POA for Healthcare: No
[2024-11-02] MEDS ORDERED: MIDAZOLAM HCL 2 MG/2 ML INJ ONE (12:19)
[2024-11-02] MEDS ORDERED: FENTANYL CITR 100 MCG/2 ML ONE (12:19)
[2024-11-02] MEDS ORDERED: HEPARIN/D5W 25,000 UNIT/500 ML BAG IV SCH (13:00)
--- NOTE | 2024-11-02 14:06 | P.CNS ---
Date of Consult: 11/02/24 Chief Complaint: Acute coronary syndrome History of Present Illness: Patient with PMH of CAD s/p multiple PCIs, presented with chest pain that started this morning, pressure, no radiation, patient is very poor historian so history was obtained from , patient usually follows up with [facility] cardiology. Allergies codeine Allergy (Unverified 01/30/16 03:45) Unknown Home medications list reviewed: Yes - Past Medical/Surgical History -: Hypertension -: CAD -: [place] -: DVT to left leg 1991 -: Left leg amputation 1991 -: 6 stents placed in 2017 - Social History Alcohol use: Yes CD- Drugs: No Review of Systems 10-point ROS is otherwise unremarkable Physical Examination Temp Pulse Resp BP Pulse Ox 96.8 F 87 17 134/78 11/02/24 10:05 11/02/24 13:45 11/02/24 13:45 11/02/24 13:45 General: Alert, In no apparent distress HEENT: Atraumatic, PERRLA, Mucous membr. moist/pink, EOMI, Sclerae nonicteric Neck: Supple, 2+ carotid pulse no bruit, No LAD, Without JVD or thyroid abnormality Respiratory: Clear to auscultation bilaterally, Normal air movement Cardiovascular: Regular rate/rhythm, Normal S1 S2 Gastrointestinal: Normal bowel sounds, No tenderness Musculoskeletal: No tenderness Integumentary: No rashes Neurological: Normal gait, Normal speech, Normal tone, Normal affect Lymphatics: No axilla or inguinal lymphadenopathy Laboratory Data (last 24 hrs) 11/02/24 11/02/24 11/02/24 10:09 10:09 10:09 WBC 8.90 Hgb 13.5 Hct 40.2 Plt Count 273 PT 12.9 INR 1.14 APTT 27.0 L Sodium 140 Potassium 3.8 BUN 16 Creatinine 0.76 Glucose 147 H Magnesium 1.1 L Total Bilirubin 0.3 AST 25 ALT 44 Alkaline Phosphatase 121 H Lipase 49 11/02/24 10:03 WBC Hgb Hct Plt Count PT INR APTT Cancelled Sodium Potassium BUN Creatinine Glucose Magnesium Total Bilirubin AST ALT Alkaline Phosphatase Lipase - Problems (1) CAD (coronary artery disease) Current Visit: Yes Status: Acute Plan: Patient with active chest pain, EKG shows significant ST- depression lateral leads. patient was taken to lab technician and PCI of LCX was done ASA 81 mg daily Brilinta 90 mg po BID Lipitor 40 mg daily
[2024-11-02 16:48] VITALS: O2SAT 97
[2024-11-02 17:46] VITALS: BMI 19.5
[2024-11-02] MEDS: ATORVASTATIN 40 MG TAB PO SCH (19:13)
[2024-11-02] MEDS: ONDANSETRON 4 MG/2 ML VIAL IV PRN (23:50)
[2024-11-03 08:12] LABS: Absolute Monocytes 1.4 K/uL (0.1-1.3); Absolute Neutrophil 16.8 K/uL (1.8-8.0); Basophils % 0.1 % (0-1.3); Hematocrit 36.1 % (36.0-45.0); Hemoglobin 12.2 g/dL (12.0-15.0); MCH 30.9 pg (27.0-35.0); MCHC 33.7 g/dL (32.0-36.0); MCV 91.6 fL (80-100); MPV 9.5 fL (7.6-11.3); Monocytes % 7.1 % (3.3-12.3); Neutrophils % 87.8 % (41.7-73.7); Platelets 247 thou/uL (152-406); RBC Red Blood Cell Count 3.94 M/uL (3.86-4.86); Red Cell Distribution Width 12.8 % (12.1-15.2)
--- NOTE | 2024-11-03 08:37 | EKG ---
Test Date: 2024-11-02 Test Time: 10:45:18 Farm Products Shipper: PH MEASUREMENT RESULTS: Intervals: Rate: 74 MS: 156 QRSD: 66 QT: 412 QTc: 457 [place]: P: 61 MS: 156 QRS: 30 T: 81 INTERPRETIVE STATEMENTS: Normal sinus rhythm Low voltage QRS ST & T wave abnormality, consider anterior ischemia Abnormal ECG Compared to ECG 11/02/2024 09:58:42 No significant changes Electronically Signed On 11-03-24 08:35:38 CDT by Chino Dominguez
--- NOTE | 2024-11-03 08:38 | EKG ---
Test Date: 2024-11-02 Test Time: 09:58:42 Synthetic Gem Press Operator: PH MEASUREMENT RESULTS: Intervals: Rate: 65 MD: 150 QRSD: 70 QT: 426 QTc: 443 [place]: P: 55 MD: 150 QRS: 24 T: 64 INTERPRETIVE STATEMENTS: Normal sinus rhythm Low voltage QRS ST & T wave abnormality, consider anterior ischemia Abnormal ECG Compared to ECG 05/27/2007 19:08:04 Low QRS voltage now present ST (T wave) deviation now present Possible ischemia now present Electronically Signed On 11-03-24 08:35:45 CDT by Chino Dominguez
[2024-11-03 08:51] LABS: Anion Gap 14.8 mEq/L (5.0-15.0); Phosphorus 4.2 mg/dL (2.5-4.9); Potassium 3.8 mEq/L (3.5-5.1)
[2024-11-03 08:52] LABS: Magnesium 1.1 mg/dL (1.6-2.4); Thyroid Stimulating Hormone 1.6 uIU/mL (0.358-3.740)
[2024-11-03 10:03] LABS: Blood Morphology Comment NOT SEEN (NOT SEEN); Differential Total Cells Count 100; Lymphocytes 7 % (15-42); Monocytes 4 % (0-10); Platelet Estimate ADEQ; Segmented Neutrophils 89 % (40-80)
[2024-11-03] MEDS: TICAGRELOR 90 MG TABLET PO SCH (10:44)
[2024-11-03] MEDS: ASPIRIN EC 81 MG TAB PO SCH (10:45)
--- NOTE | 2024-11-03 11:35 | P.PN ---
Subjective Date of Service: 11/03/24 Chief Complaint: Acute coronary syndrome Subjective: No new changes, No C/O voiced, Tolerating diet, Ambulating, Improving Review of Systems 10-point ROS is otherwise unremarkable Physical Examination - Vital Signs Temperature: 98.7 F Blood Pressure: 139/73 Pulse: 107 Respirations: 20 Pulse Ox (%): 95 - Physical Exam General: Alert, In no apparent distress HEENT: Atraumatic, PERRLA, EOMI Neck: Supple, JVD not distended Respiratory: Clear to auscultation bilaterally, Normal air movement Cardiovascular: Regular rate/rhythm, Normal S1 S2 Gastrointestinal: Normal bowel sounds, No tenderness Musculoskeletal: No tenderness Integumentary: No rashes Neurological: Normal speech, Normal tone, Normal affect Lymphatics: No axilla or inguinal lymphadenopathy - Studies Medications List Reviewed: Yes Assessment And Plan - Current Problems (Diagnosis) (1) CAD (coronary artery disease) Current Visit: Yes Status: Acute Plan: Patient with active chest pain, EKG shows significant ST- depression lateral leads. patient was taken to research lab assistant and PCI of LCX was done ASA 81 mg daily Brilinta 90 mg po BID Lipitor 40 mg daily (2) HTN (hypertension) Current Visit: Yes Status: Acute Plan: resume patient home medications Coreg 25 mg po BID Valsartan 160 mg daily (3) HLD (hyperlipidemia) Current Visit: Yes Status: Acute Plan: continue lipitor 40 mg daily Cardiology will sign off, please call with any questions.
--- NOTE | 2024-11-03 11:57 | P.PN ---
Subjective Date of Service: 11/03/24 Chief Complaint: Acute coronary syndrome Subjective: No new changes, C/O voiced (Patient reports feeling hungry. at bedside and reports patient is almost back to her baseline) Review of Systems 10-point ROS is otherwise unremarkable General: Other ("tired" ) Physical Examination - Vital Signs Temperature: 98.7 F Blood Pressure: 139/73 Pulse: 107 Respirations: 20 Pulse Ox (%): 95 - Physical Exam General: Alert, In no apparent distress, Oriented x2 HEENT: Atraumatic, PERRLA, EOMI Neck: Supple, JVD not distended Respiratory: Normal air movement, Diminished Cardiovascular: Regular rate/rhythm, Normal S1 S2 Capillary refill: <2 Seconds Gastrointestinal: Normal bowel sounds, No tenderness Musculoskeletal: No tenderness Integumentary: No rashes Neurological: Normal speech, Normal tone, Normal affect Lymphatics: No axilla or inguinal lymphadenopathy - Studies Medications List Reviewed: Yes Assessment And Plan - Plan Acute coronary syndrome CAD status post six stents (2016) History [place] - EKG: ST Segment is depressed in leads V1, V2, V3, V4 - Heart score 7 - Troponin 22.4 - Transthoracic echocardiogram, pending result - Chest x-ray reviewed with: "mild CHF possible" - Cardiology consulted and patient underwent heart cath X1 stent on 11/02/24 - Per Cardiology recs: Continue ASA/Brilinta/Lipitor, signed off 11/03/24 - Continue to monitor on telemetry Hypomagnesemia -Mag level reviewed; 1.1 -Continue to monitor and replete with protocol Diabetes - Monitor with AM labs - A1C 6.1% - Home med Metformin/hold for now - likely 2/2 inflammation C/o Aspiration Leukocytosis - WBC 19, continue to monitor - CXR ordered - NPO for now - Bedside swallow eval per nursing staff - Consider speech eval - Discontinued Morphine Hypertension - Continue home medications per cardiology on 11/03: Coreg 25 mg po BID & Valsartan 160 mg daily - Monitor BP per unit protocol DVT Ppx: Brilinta Code Status: Full Code Discharge Plan: Home Plan to discharge in: 24 Hours - Code Status/Comfort Care Code Status Assessed: Yes (FULL CODE )
--- NOTE | 2024-11-03 13:01 | ECHO ---
HEIGHT: 5 ft 3 in WEIGHT: 110 lb 0 oz DATE OF STUDY: 11/03/[address]: Joi Jose NP 2-DIMENSIONAL: YES M.MODE: YES DOPPLER: YES COLOR FLOW: YES TDS: PORTABLE: YES DEFINITY: BUBBLE STUDY: DIAGNOSIS: ACUTE CORONARY SYNDROME CARDIAC HISTORY: CATHERIZATION: SURGERY: PROSTHETIC VALVE: PACEMAKER: MEASUREMENTS (cm) DIASTOLIC (NORMALS) SYSTOLIC (NORMALS) IVSd 0.9 (0.6-1.2) LA Diam 3.3 (1.9-4.0) LVEF 60-65% LVIDd 4.3 (3.5-5.7) LVIDs 2.8 (2.0-3.5) %FS 35% LVPWd 1.0 (0.6-1.2) Ao Diam 2.5 (2.0-3.7) 2 DIMENSIONAL ASSESSMENT: RIGHT ATRIUM: NORMAL LEFT ATRIUM: NORMAL RIGHT VENTRICLE: NORMAL LEFT VENTRICLE: NORMAL TRICUSPID VALVE: TRACE TRICUSPID REGURGITATION MITRAL VALVE: NORMAL PULMONIC VALVE: NORMAL AORTIC VALVE: NORMAL PERICARDIAL EFFUSION: NONE AORTIC ROOT: NORMAL LEFT VENTRICULAR WALL MOTION: NORMAL DOPPLER/COLOR FLOW: NORMAL COMMENTS: 1. NORMAL LEFT VENTRICULAR SYSTOLIC FUNCTION, EJECTION FRACTION 60-65%, NORMAL WALL MOTION TECHNOLOGIST: ROMI SIMPSON
--- NOTE | 2024-11-03 14:07 | RAD REPORT ---
Procedure: Chest Single View HISTORY: Cough COMPARISON: September 2024 FINDINGS: The lungs appear clear of acute infiltrate. No significant pleural effusion noted. The heart is normal size. IMPRESSION: No acute abnormality is displayed.
[2024-11-03] MEDS: MAGNESIUM 50% 3 GM in NA CHLORIDE 0.9% 100 ML IV ONE (15:42)
[2024-11-03] MEDS: carvediloL 25 MG TAB PO SCH (21:12)
--- NOTE | 2024-11-03 21:44 | OP ---
Surgeon: Chino Dominguez Procedures Performed: 1. Left heart catheterization. 2. Selective coronary angiogram. 3. Percutaneous coronary intervention of the left circumflex with Synergy 2.5 x 20 mm drug-eluting st ent. Indication For Procedure: [id number] [place]. Complications: None. Estimated Blood Loss: Less than 50 cc. Access: Right radial, closed by TR band. Sedation Time: 30 minutes with 1 of Versed and 25 fentanyl. Description Of Procedure: After risks, benefits, and alternatives were explained to the patient, the patient agreed to proceed with procedure and signed informed consent. The patient was brought back to the geophysical laboratory supervisor, prepped and draped in sterile fashion. Time-out was performed. Sedation was admini stered. Next, right radial access was obtained using ultrasound-guided micropuncture technique. Tig er 4 catheter was advanced over a J-wire to the LV cavity. LVEDP was obtained. Pullback did not sarah w any gradient. Same catheter was used for selective angiogram of the left and right coronary system s. Then, that catheter was exchanged for an EBU 3.0 mm guide. Heparin was administered. ACT was th erapeutic. Runthrough wire was passed across the lesion. We pre-dilated the lesion with an NC 2.5 m m balloon. GuideLiner was used for support. Next, Synergy 2.5 x 20 mm drug-eluting stent was placed across the lesion and inflated to 18 atmospheres. Final angiogram shows SUMIT-3 flow. Wire was stoney anders. Catheter was removed over a J-wire. Sheath was removed. TR band was applied. Hemostasis achi eved. The patient was moved back to recovery in stable condition. Findings: 1. Left main: Distal 30% disease. 2. LAD: Proximal 50% disease, then mid stents patent with distal mild luminal irregularities. 3. Left circumflex with proximal to mid 99% calcified disease, status post PCI as above. Mid to dist al diffuse 50% to 60% disease, then distal mild luminal irregularities. 4. OM1: Mild luminal regularities. 5. RCA: Mid 40% disease and mild luminal irregularities. Assessment: 1. Significant proximal to mid left circumflex disease, status post percutaneous coronary interventio n with Synergy 2.5 x 20 mm drug-eluting stent. 2. Moderate proximal right coronary artery and left anterior descending artery disease with patent le ft anterior descending stents. Plan: 1. Aspirin 81 mg daily for life. 2. Brilinta 180 x1 was given in the geophysical laboratory supervisor, continue Brilinta 90 mg p.o. b.i.d. for 12 months. STEVEN/LEYLA Voice ID: [id number] Report ID: [id number]
[2024-11-04] MEDS: VALSARTAN 160 MG TAB PO SCH (09:10)
[2024-11-04 09:42] LABS: Absolute Lymphocytes (CBC) 0.9 K/uL (0.7-4.9); Absolute Monocytes 1.4 K/uL (0.1-1.3); Absolute Neutrophil 15.7 K/uL (1.8-8.0); Basophils % 0.2 % (0-1.3); Hematocrit 34.2 % (36.0-45.0); Hemoglobin 11.8 g/dL (12.0-15.0); Lymphocytes % 5.1 % (15.3-44.8); MCH 31.2 pg (27.0-35.0); MCHC 34.4 g/dL (32.0-36.0); MCV 90.8 fL (80-100); MPV 9.8 fL (7.6-11.3); Neutrophils % 86.7 % (41.7-73.7); Platelets 210 thou/uL (152-406); RBC Red Blood Cell Count 3.77 M/uL (3.86-4.86); Red Cell Distribution Width 12.6 % (12.1-15.2)
[2024-11-04 09:56] LABS: Anion Gap 10.5 mEq/L (5.0-15.0); Magnesium 2.3 mg/dL (1.6-2.4); Phosphorus 2.5 mg/dL (2.5-4.9); Potassium 3.5 mEq/L (3.5-5.1)
[2024-11-04 12:52] VITALS: BP 89/51; TEMP 98.5
[2024-11-04 13:03] LABS: Specific Gravity 1.029 (1.005-1.030); Sqamous Epithelial <5 /HPF (None Seen); Urine Bacteria <20 /HPF (<20); Urine Bilirubin NEGATIVE (Negative); Urine Blood Trace (Negative); Urine Clarity Clear (Clear); Urine Color Yellow (Yellow); Urine Culture Reflex Order NOT NEEDED; Urine Glucose NEGATIVE (Negative); Urine Ketones NEGATIVE (Negative); Urine Microscopic Reflex YN ORDER UMIC; Urine Mucus Slight /HPF (None Seen); Urine Nitrite NEGATIVE (Negative); Urine Protein 1+ (Negative); Urine Urobilinogen Normal (Normal); Urine pH 5.5 (5.0-7.0)
--- NOTE | 2024-11-04 13:50 | P.DS ---
Admission Date: 11/03/24 Discharge Date: 11/04/24 Discharge Condition: FAIR Reason for Admission: Acute coronary syndrome Consultations: cardiology Procedures: cardiac catherization - Problems (1) CAD (coronary artery disease) Current Visit: Yes Status: Acute (2) HLD (hyperlipidemia) Current Visit: Yes Status: Acute (3) HTN (hypertension) Current Visit: Yes Status: Acute Brief History of Present Illness: Luci Vaca is a 74-year-old female with a past medical history of CAD status post 6 stents in 2016, myocardial infarction, hypertension, blood clot to left leg requiring amputation in 1991, who presents to the ED with severe chest pain, diaphoresis, abdominal pain, shortness of breath that began at 9 AM this morning. On evaluation in the ED she was found to had EKG showing ST Segment is depressed in leads V1, V2, V3, V4 and negative troponin. Hospital Course: cardiology consulted Patient with active chest pain, EKG shows significant ST- depression lateral leads. patient was taken to prestressed concrete laborer and PCI of LCX was done ASA 81 mg daily Brilinta 90 mg po BID Lipitor 40 mg daily hypertension also addressed resume patient home medications Coreg 25 mg po BID Valsartan 160 mg daily HLD statin , lipitor 40 mg daily Vital Signs/Physical Exam: Temp Pulse Resp BP Pulse Ox 98.5 F 89 16 89/51 L 95 11/04/24 12:00 11/04/24 12:00 11/04/24 12:00 11/04/24 12:00 11/04/24 12:00 General: Oriented x3 HEENT: Atraumatic, Normocephalic Neck: Supple Respiratory: Clear to auscultation bilaterally, Normal air movement Cardiovascular: Regular rate/rhythm, Normal S1 S2 Gastrointestinal: Soft and benign, Non-distended Musculoskeletal: No clubbing Integumentary: No rashes, No breakdown Neurological: Normal gait, Normal speech Laboratory Data at Discharge: WBC 18.10 thou/uL (4.3-10.9) H 11/04/24 09:22 Hgb 11.8 g/dL (12.0-15.0) L 11/04/24 09:22 Hct 34.2 % (36.0-45.0) L 11/04/24 09:22 Plt Count 210 thou/uL (152-406) 11/04/24 09:22 PT 12.9 SECONDS (10-13.0) 11/02/24 10:09 INR 1.14 11/02/24 10:09 APTT 27.0 SECONDS (27.2-37.4) L 11/02/24 10:09 Sodium 136 mEq/L (136-145) 11/04/24 09:22 Potassium 3.5 mEq/L (3.5-5.1) 11/04/24 09:22 BUN 21 mg/dL (7-18) H 11/04/24 09:22 Creatinine 0.71 mg/dL (0.55-1.02) 11/04/24 09:22 Glucose 153 mg/dL (74-106) H 11/04/24 09:22 Phosphorus 2.5 mg/dL (2.5-4.9) 11/04/24 09:22 Magnesium 2.3 mg/dL (1.6-2.4) 11/04/24 09:22 Total Bilirubin 0.3 mg/dL (0.2-1.0) 11/02/24 10:09 AST 25 U/L (15-37) 11/02/24 10:09 ALT 44 U/L (13-56) 11/02/24 10:09 Alkaline Phosphatase 121 U/L (45-117) H 11/02/24 10:09 Triglycerides 117 mg/dL (<150) 11/03/24 08:02 Cholesterol 141 mg/dL (<200) 11/03/24 08:02 HDL Cholesterol 54 mg/dL (40-60) 11/03/24 08:02 Cholesterol/HDL Ratio 2.61 11/03/24 08:02 Lipase 49 U/L (13-75) 11/02/24 10:09 Home Medications: Amlodipine [Norvasc*] 5 mg PO DAILY 11/02/24 Atorvastatin Calcium [Lipitor] 40 mg PO DAILY 11/02/24 Carvedilol [Coreg] 25 mg PO BID 11/02/24 Metformin HCl [Glucophage*] 500 mg PO BEDTIME 11/02/24 Omeprazole 20 mg PO DAILY 11/02/24 Valsartan [Diovan*] 160 mg PO DAILY 11/02/24 Aspirin [Aspirin EC 81 MG] 81 mg PO DAILY #30 tab 03/28/25 Doxycycline Monohydrate 100 mg PO BID #10 tab 11/04/24 Ticagrelor [Brilinta*] 90 mg PO BID #30 tab 11/04/24 New Medications: Aspirin [Aspirin EC 81 MG] 81 mg PO DAILY #30 tab Ticagrelor [Brilinta*] 90 mg PO BID #30 tab Doxycycline Monohydrate 100 mg PO BID #10 tab Physician Discharge Instructions: followup with pcp followup with cardiology take medications as prescribed Diet: ADA Activity: Ad magan Followup: Gabrielle Hansen MD [Primary Care Provider] - 1-2 Weeks Chino Dominguez MD [ACTIVE - CAN ADMIT] - 1-2 Weeks
== END 2024-11-04 14:49 | disposition home or self-care (01) | DRG 322 ==
LOC: ER 09:50 → ERHOLD 11:58 → 2ND 15:09 → OBSVTOIN 11-03 18:23
PROVIDERS: ADMIT Hospitalist; ATTEND Internal Medicine
PROC: 0270346 Dilation of Coronary Artery, One Artery, Bifurcation, with Drug-eluting Intraluminal Device, Percutaneous Approach (ICD-10-PCS; principal; 2024-11-03)
PROC: 4A023N7 Measurement of Cardiac Sampling and Pressure, Left Heart, Percutaneous Approach (ICD-10-PCS; 2024-11-03)
PROC: B2111ZZ Fluoroscopy of Multiple Coronary Arteries using Low Osmolar Contrast (ICD-10-PCS; 2024-11-03)
DX: I24.9 Acute ischemic heart disease, unspecified (principal); E11.9 Type 2 diabetes mellitus without complications; Z89.612 Acquired absence of left leg above knee; F03.90 Unspecified dementia, unspecified severity, without behavioral disturbance, psychotic disturbance, mood disturbance, and anxiety; I10 Essential (primary) hypertension; E78.5 Hyperlipidemia, unspecified; E83.42 Hypomagnesemia; I25.10 Atherosclerotic heart disease of native coronary artery without angina pectoris; I25.2 Old myocardial infarction; Z95.5 Presence of coronary angioplasty implant and graft; Z86.718 Personal history of other venous thrombosis and embolism
CPT/HCPCS: 36415; 71045; 76937; 80048; 80061; 80076; 81001; 83036; 83690; 83735; 83880; 84100; 84439; 84443; 84484; 85025; 85347; 85610; 85730; 87086; 87088; 93005; 93306; 93458; 96361; 96374; 96375; 99285; C1725; C1893; C9600; G0378; J0461; J1171; J1644; J2003; J2250; J2405; J3010; J3475; J7030; Q9967